=== PATIENT | male | born 1955 | race Two or more races ===

== ENCOUNTER 2019-05-10 09:03 | Outpatient (CLI) | payer OTHER | END 2019-05-10 09:05 | disposition home or self-care (01) | LOC: SONOGRAMA 09:03 → MAMO-SONO 10:15 | DX: D24.2 Benign neoplasm of left breast (principal) ==

== ENCOUNTER 2022-03-26 06:45 | Day surgery (SDC) | payer OTHER ==
[2022-03-26] MEDS ORDERED: ULTRAM50 MG PO (12:33)
[2022-03-26] MEDS ORDERED: NEURONTIN300 MG PO (12:33)
[2022-03-26] MEDS ORDERED: MIRALAX17 GM PO (12:33)
[2022-03-26] MEDS ORDERED: TYLENOL ARTHRI650 MG PO (12:33)
== END 2022-03-26 17:55 | disposition home or self-care (01) ==
LOC: CIR.AMB 06:45 → EDSTATUS 07:15 → SURH 07:15 → CIR.AMB 17:55
PROVIDERS: ATTEND Surgery
DX: K40.31 Unilateral inguinal hernia, with obstruction, without gangrene, recurrent (principal); K42.9 Umbilical hernia without obstruction or gangrene; Z20.822 Contact with and (suspected) exposure to COVID-19; Z53.09 Procedure and treatment not carried out because of other contraindication; K29.70 Gastritis, unspecified, without bleeding